=== PATIENT | female | born 1960 | race Caucasian/White ===

== ENCOUNTER 2021-01-11 16:37 | Emergency (ER) | payer OTHER, BC ==
[~2021-01-11] VITALS: Ht 170.2 cm; Wt 95.3 kg
[2021-01-11] MEDS ORDERED: iohexol 300mg/ml 100ml inj. ONE ×3 (17:15→17:46)
[2021-01-11 17:27] LABS: BASOPHILS % (AUTO) 0.3 % (0-1); EOSINOPHILS # (AUTO) 0.1 X10'3 (0-0.9); EOSINOPHILS % (AUTO) 0.5 % (0-6); HEMATOCRIT 46.1 % (35.0-45.0); HEMOGLOBIN 15.6 g/dl (12.0-16.0); LYMPHOCYTES # (AUTO) 2.1 X10'3 (1.1-4.8); LYMPHOCYTES % (AUTO) 12.8 % (21-51); MEAN CORPUSCULAR HEMOGLOBIN 30.5 PG (27.0-31.0); MEAN CORPUSCULAR HGB CONC 33.8 g/dL (33.0-36.5); MEAN CORPUSCULAR VOLUME 90.3 FL (78-98); MONOCYTES # (AUTO) 0.9 X10'3 (0-0.9); MONOCYTES % (AUTO) 5.4 % (2-12); NEUTROPHILS # (AUTO) 13.5 X10'3 (1.8-7.7); PLATELET COUNT 178 X10'3 (140-440); RED BLOOD COUNT 5.11 X10'6 (4.20-5.60); RED CELL DISTRIBUTION WIDTH 13.6 % (11.5-14.5); WHITE BLOOD COUNT 16.7 X10'3 (4.5-11.0)
[2021-01-11 17:50] LABS: ALANINE AMINOTRANSFERASE 27 U/L (12-78); ALBUMIN 3.7 G/DL (3.4-5.0); ALBUMIN/GLOBULIN RATIO 0.9 (1.1-1.5); ALKALINE PHOSPHATASE 105 IU/L (46-116); ANION GAP 7 (8-16); ASPARTATE AMINO TRANSFERASE 25 U/L (10-37); BILIRUBIN,TOTAL 0.2 MG/DL (0.1-1.0); BLOOD UREA NITROGEN 14 MG/DL (7-18); BUN/CREATININE RATIO 17.5 (6.6-38.0); CALCIUM 8.9 MG/DL (8.5-10.1); CHLORIDE 107 MMOL/L (99-107); GLUCOSE 112 MG/DL (70-104); SODIUM 144 MMOL/L (135-145); TOTAL CARBON DIOXIDE 30.3 MMOL/L (24-32); TOTAL PROTEIN 7.7 G/DL (6.4-8.2); eGFR 73 ML/MIN
[2021-01-11 17:53] LABS: TROPONIN I < 0.04 NG/ML (0.0-0.05)
[2021-01-11 17:56] LABS: POTASSIUM 3.5 MMOL/L (3.5-5.1)
[2021-01-11 18:28] LABS: TOTAL CELLS COUNTED 100
[2021-01-11 18:29] LABS: LARGE PLATELETS MODERATE; PLATELET ESTIMATE NORMAL; TOXIC GRANULATION 1+
--- NOTE | 2021-01-11 19:18 | NUR ---
pt accidental d/c iv. cannula intact.
[2021-01-11 19:24] VITALS: BP 121/89
== END 2021-01-11 20:27 | disposition home or self-care (01) ==
LOC: ER 16:37
DX: S30.1XXA Contusion of abdominal wall, initial encounter (principal); R07.89 Other chest pain; E03.9 Hypothyroidism, unspecified; M25.579 Pain in unspecified ankle and joints of unspecified foot; W22.11XA Striking against or struck by driver side automobile airbag, initial encounter; Y93.89 Activity, other specified; Y92.89 Other specified places as the place of occurrence of the external cause; Y99.8 Other external cause status
CPT/HCPCS: 36415; 70450; 71260; 72125; 74177; 80053; 84484; 85007; 85025; 85610; 86885; 86900; 86901; 93005; 99285; Q9967

== ENCOUNTER 2023-09-04 11:52 | Day surgery (SDC) | payer BC ==
[2023-09-03 12:29] LABS: BASOPHILS % (AUTO) 0.6 % (0-1); EOSINOPHILS # (AUTO) 0.1 X10'3 (0-0.9); LYMPHOCYTES # (AUTO) 2.1 X10'3 (1.1-4.8); MEAN CORPUSCULAR HEMOGLOBIN 30.9 PG (27.0-31.0); MEAN CORPUSCULAR VOLUME 90.9 FL (78-98); MONOCYTES # (AUTO) 0.6 X10'3 (0-0.9); MONOCYTES % (AUTO) 6.3 % (2-12); NEUTROPHILS % (AUTO) 68.1 % (42-75); PRE OP HEMATOCRIT 47.8 % (35.0-45.0); PRE OP HEMOGLOBIN 16.2 g/dL (12.0-16.0); PRE OP PLATELET COUNT 194 X10'3 (140-440); PRE OP WHITE BLOOD COUNT 8.8 10'3 (4.8-10.8); RED BLOOD COUNT 5.26 X10'6 (4.20-5.60); RED CELL DISTRIBUTION WIDTH 14.3 % (11.5-14.5)
[2023-09-03 12:30] LABS: PRE OP PROTIME 10.3 SECONDS (9.0-12.0)
[2023-09-03 12:37] LABS: ALBUMIN 3.8 G/DL (3.4-5.0); ALBUMIN/GLOBULIN RATIO 0.8 (1.1-1.5); ALKALINE PHOSPHATASE 115 IU/L (46-116); BLOOD UREA NITROGEN 12 MG/DL (7-18); BUN/CREATININE RATIO 17.6 (10.0-20.0); CALCIUM 9.2 MG/DL (8.5-10.1); CHLORIDE 104 MMOL/L (99-107); CREATININE 0.68 MG/DL (0.40-0.90); PRE OP ALT 33 U/L (30-65); PRE OP ANION GAP 9 (8-16); PRE OP AST 17 U/L (10-37); PRE OP BILIRUB, TOTAL 0.2 MG/DL (0.0-1.0); PRE OP GLUCOSE 108 MG/DL (70-104); PRE OP POTASSIUM 3.9 MMOL/L (3.4-5.1); PRE OP SODIUM 142 MMOL/L (135-145); TOTAL CARBON DIOXIDE 29.3 MMOL/L (24-32); TOTAL PROTEIN 8.3 G/DL (6.4-8.2); eGFR 87 ML/MIN
[2023-09-03 13:32] LABS: LARGE PLATELETS FEW; PLATELET ESTIMATE NORMAL
[2023-09-04] VITALS (9 sets, daily range): BP systolic 117–161; BP diastolic 54–79; PULSE 70–88; RESP 9–16; TEMP 97.9; O2SAT 92–99
[~2023-09-04] VITALS: Ht 167.6 cm; Wt 98.0 kg
[2023-09-04] MEDS: cefazolin 2gm/D5W 100mL 100 ML IV ONE (05:30)
[~2023-09-04 11:52] MED LIST: AMOX600S4 PO; LEVO150T PO; methylene blue (5mg/ml) 50mg/10ml ampul IV ONE
[2023-09-04] MEDS ORDERED: fentaNYL/PF 50MCG/1 ML 2ML syringe ONE ×2 (12:13→13:21)
[2023-09-04] MEDS ORDERED: midazolam 1 mg/ML 2ml injection ONE (12:13)
[2023-09-04] MEDS ORDERED: ondansetron/PF 4mg/2ml inj ONE (12:13)
[2023-09-04] MEDS ORDERED: LIDOcaine 2% (20mg/ml) 5ml vial ONE (12:13)
[2023-09-04] MEDS ORDERED: propofol inj 20 ML IV ONE (12:13)
[2023-09-04] MEDS: famotidine 20mg tablet PO ONE (12:17)
[2023-09-04] MEDS: ringers solution, lacted 1,000 ML IV SCH (12:18)
[2023-09-04] MEDS ORDERED: sevoflurane 250ml liquid IH ONE (12:26)
[2023-09-04] MEDS ORDERED: acetaminophen 1,000mg/100ml IV 100 ML IV ONE (12:35)
[2023-09-04] MEDS ORDERED: labetalol 20mg/4ml (5mg/ml) syringe IV ONE (12:45)
[2023-09-04] MEDS ORDERED: BUPIVACAINE liposomal/PF 13.3 MG/ML vial IM ONE (12:46)
[2023-09-04] MEDS ORDERED: BUPIVAcaine/PF 2.5mg/ml (0.25%) 10ml vial ONE (12:46)
[2023-09-04] MEDS ORDERED: ringers solution, lacted 1,000 ML IV SCH (13:05)
[2023-09-04] MEDS ORDERED: morphine 4 MG/ML inj SYRINge IV PRN (13:05)
[2023-09-04] MEDS ORDERED: morphine 2 MG/ML inj. syringe IV PRN (13:05)
[2023-09-04] MEDS ORDERED: labetalol 20mg/4ml (5mg/ml) syringe IV PRN (13:05)
[2023-09-04] MEDS ORDERED: hydrALAZINE 20mg/ml inj. IV PRN (13:05)
[2023-09-04] MEDS ORDERED: fentaNYL/PF 50MCG/1 ML 2ML syringe IV PRN ×2 (13:05)
[2023-09-04] MEDS ORDERED: ondansetron/PF 4mg/2ml inj IV PRN (13:05)
[2023-09-04] MEDS: LIDOcaine 1% 30ml preserv. free vial ONE (13:51)
[2023-09-04] MEDS: BUPIVACAINE liposomal/PF 13.3 MG/ML vial IM ONE (13:51)
== END 2023-09-04 16:17 | disposition home or self-care (01) ==
LOC: PAS 11:52
PROVIDERS: ATTEND Surgery
DX: C50.211 Malignant neoplasm of upper-inner quadrant of right female breast (principal); Z79.01 Long term (current) use of anticoagulants; Z79.899 Other long term (current) drug therapy; E03.9 Hypothyroidism, unspecified; Z98.890 Other specified postprocedural states; Z90.710 Acquired absence of both cervix and uterus; Z88.8 Allergy status to other drugs, medicaments and biological substances
CPT/HCPCS: 19301; 36415; 38525; 38900; 76098; 80053; 85025; 85610; 85730; 93005; C9290; J0131; J0690; J1100; J2250; J2405; J2704; J3010; J3490; J7030; J7120; Q9968; Z7506; Z7508; Z7512; 85008; A4215; A4618; A7000